=== PATIENT | male | born 1990 ===

== ENCOUNTER 2019-01-30 06:13 | Observation (INO) | payer OTHER ==
[2019-01-30 06:36] VITALS: BMI 27.9
[2019-01-30] MEDS ORDERED: Lactated Ringer's 1,000 ML IV ONE ×4 (07:30→16:00)
--- NOTE | 2019-01-30 07:37 | CP.SDSHP ---
Same Day Surgery H & P - History Proposed Procedure: right distal humeral shaft fracture ORIF Pre-Op Diagnosis: Right distal humerus shaft fracture - Previous Medical/Surgical History Previous Surgical History: no PMH/PSH. non smoker - Allergies Allergies: Allergies No Known Allergies Allergy (Verified 01/29/19 14:35) - Current Medications Current Medications: denies - Physical Exam Vital Signs: Vital Signs 01/30/19 01/30/19 06:58 07:00 Temperature 97.8 F Pulse Rate 55 L 55 L Respiratory 16 Rate Blood Pressure 112/63 O2 Sat by Pulse 97 Oximetry Mental Status: Alert & Oriented x3 Neuro: WNL Heart: WNL Lungs: WNL GI: WNL - {Optional Preform as Required} Ortho: Other (splint intact, +ROM fingers, wrist, sensation intact rad/med/ulnar nerve distrib) Other Pertinent Findings: xrays at outside facility. [place] [employer] patient report reviewed, no CDS. Patient counseled on the risks of addiction, physical or psy chological dependence, and overdose associated with opioid drugs and the danger of taking opioid drugs with alcohol and other central nervous system depressants, and cautioned patient on storage and disposal. - Impression Impression: 28M RHD with twisting injury to right arm while playing found to have right distal humeral shaft fx for ORIF Pt. Evaluated Today:Candidate for Anesthesia & Procedure: Yes - Date & Time Date: 01/30/19 Time: 07:30 Short Stay Discharge - Short Stay Discharge Admitting Diagnosis/Reason for Visit: S42.301A/S42.391A Disposition: HOME/ ROUTINE Medications: oxyCODONE/Acetaminophen [Percocet 5/325 mg Tab] 1 ea PO Q4H PRN #30 tab PRN Reason: Pain, Moderate (4-7) Past Patient History - Past Medical History & Family History Past Medical History?: No - Past Social History Smoking Status: Never Smoked - CARDIAC Hx Cardiac Disorders: No - PULMONARY Hx Respiratory Disorders: No - NEUROLOGICAL Hx Neurological Disorder: No - HEENT Hx HEENT Problems: No - ENDOCRINE/METABOLIC Hx Endocrine Disorders: No - HEMATOLOGICAL/ONCOLOGICAL Hx Blood Disorders: No - INTEGUMENTARY Hx Dermatological Problems: No - MUSCULOSKELETAL/RHEUMATOLOGICAL Hx Musculoskeletal Disorders: No - GASTROINTESTINAL Hx Gastrointestinal Disorders: No - GENITOURINARY/GYNECOLOGICAL Hx Genitourinary Disorders: No - PSYCHIATRIC Hx Emotional Abuse: No Hx Physical Abuse: No - SURGICAL HISTORY Hx Surgeries: No - ANESTHESIA Hx Anesthesia: No
[2019-01-30] MEDS ORDERED: Bacitracin Ointment 30 GM TUBE ONE (09:20)
[2019-01-30] MEDS ORDERED: Absorbable Gelatin Sponge Size 12-7 ONE ×3 (09:20→14:44)
[2019-01-30] MEDS ORDERED: Bupivacaine 0.5% Inj(30mL) ONE (09:20)
[2019-01-30] MEDS ORDERED: methylPREDNISolone Depo 80 mg/ml Inj ONE (09:20)
[2019-01-30] MEDS ORDERED: EPINEPHrine 1 mg/ml (1:1000) Inj ONE (09:20)
[2019-01-30] MEDS ORDERED: Thrombin Topical 5,000 Int Units Spray Kit ONE ×2 (09:21→13:36)
[2019-01-30] MEDS ORDERED: Propofol 10 mg/ml Inj (20 ML) ONE (09:35)
[2019-01-30] MEDS ORDERED: Lidocaine 4% (Laryng-O-Jet) Kit MM ONE (09:35)
[2019-01-30] MEDS ORDERED: Etomidate 20 mg/10ml Inj IV ONE (09:35)
[2019-01-30] MEDS ORDERED: Succinylcholine 200 mg/10 ml Inj IV ONE (09:35)
[2019-01-30] MEDS ORDERED: Dexamethasone 4 mg/1 ml ONE (09:40)
[2019-01-30] MEDS ORDERED: Phenylephrine 10 mg/ml Inj ONE (09:40)
[2019-01-30] MEDS ORDERED: Midazolam 2 MG/2 ML VIAL ONE (10:40)
[2019-01-30] MEDS ORDERED: Rocuronium 10 mg/ml (5 ml) ONE ×4 (10:56→15:08)
[2019-01-30 14:23] LABS: ABG ALLEN TEST YES; ARTERIAL BLOOD GAS HCO3 24.8 mmol/L (21-28); ARTERIAL BLOOD GAS HEMOGLOBIN 12.7 g/dL (11.7-17.4); ARTERIAL BLOOD GAS O2 CONTENT 17.9 ML/dL (15-23); ARTERIAL BLOOD GAS O2 SAT 99.7 % (95-98); ARTERIAL BLOOD GAS PCO2 44 mm/Hg (35-45); ARTERIAL BLOOD GAS PH 7.37 (7.35-7.45); ARTERIAL BLOOD GAS PO2 253 mm/Hg (80-100); ARTERIAL BLOOD GAS TCO2 26.8 mmol/L (22-28)
[2019-01-30] MEDS ORDERED: Oxycodone/Acetaminophen 5/325 mg Tab PO PRN (15:26)
[2019-01-30] MEDS ORDERED: Lactated Ringer's 1,000 ML IV SCH ×2 (15:30→17:00)
[2019-01-30] MEDS ORDERED: Neostigmine 1:1000 (1 mg/ml) Inj ONE (16:03)
[2019-01-30] MEDS ORDERED: HYDROmorphone 0.5 mg/0.5 ml ISec IVP PRN (16:49)
[2019-01-30] MEDS ORDERED: DiphenhydrAMINE 50 mg/ml Inj IVP PRN (16:55)
[2019-01-30] MEDS ORDERED: Naloxone 0.4 mg/ml Inj (Adult) IVP PRN (16:55)
[2019-01-30] MEDS: HYDROmorphone 0.5 mg/0.5 ml ISec IVP PRN ×4 (17:26→18:05)
--- NOTE | 2019-01-30 17:51 | CP.PCM.HP ---
History of Present Illness - History of Present Illness History of Present Illness: 28 yo male with no significant PMH broke his right humerus after a fall 5 days ago. Had ORIF today and was advised to stay for observation post surgery. Present on Admission - Present on Admission Any Indicators Present on Admission: No History of DVT/PE: No History of Uncontrolled Diabetes: No Urinary Catheter: No Decubitus Ulcer Present: No Review of Systems - Review of Systems All systems: reviewed and no additional remarkable complaints except (aside from those mentioned above, 12 point system review were negative by me) Past Patient History - Past Medical History & Family History Past Medical History?: No - Past Social History Smoking Status: Never Smoked Chewing Tobacco Use: No Cigar Use: No Alcohol: None Drugs: Denies - CARDIAC Hx Cardiac Disorders: No - PULMONARY Hx Respiratory Disorders: No - NEUROLOGICAL Hx Neurological Disorder: No - HEENT Hx HEENT Problems: No - ENDOCRINE/METABOLIC Hx Endocrine Disorders: No - HEMATOLOGICAL/ONCOLOGICAL Hx Blood Disorders: No - INTEGUMENTARY Hx Dermatological Problems: No - MUSCULOSKELETAL/RHEUMATOLOGICAL Hx Musculoskeletal Disorders: No - GASTROINTESTINAL Hx Gastrointestinal Disorders: No - GENITOURINARY/GYNECOLOGICAL Hx Genitourinary Disorders: No - PSYCHIATRIC Hx Emotional Abuse: No Hx Physical Abuse: No - SURGICAL HISTORY Hx Surgeries: No - ANESTHESIA Hx Anesthesia: No Meds Home Medications: Home Medication List Medication Instructions Recorded Confirmed Type oxyCODONE/Acetaminophen [Percocet 1 ea PO Q4H PRN #30 tab 01/30/19 Rx 5/325 mg Tab] Allergies/Adverse Reactions: Allergies Allergy/AdvReac Type Severity Reaction Status Date / Time No Known Allergies Allergy Verified 01/29/19 14:35 Physical Exam - Constitutional Appears: No Acute Distress - Head Exam Head Exam: ATRAUMATIC - Eye Exam Eye Exam: absent: Scleral icterus - ENT Exam ENT Exam: Mucous Membranes Moist - Neck Exam Neck exam: Negative for: Meningismus - Respiratory Exam Respiratory Exam: absent: Rales, Rhonchi, Wheezes, Respiratory Distress - Cardiovascular Exam Cardiovascular Exam: REGULAR RHYTHM, +S1, +S2 - GI/Abdominal Exam GI & Abdominal Exam: Soft. absent: Tenderness - Rectal Exam Rectal Exam: Deferred - Extremities Exam Extremities exam: Negative for: normal inspection (right arm immobilized with sling) - Neurological Exam Neurological exam: Alert, Oriented x3 - Psychiatric Exam Psychiatric exam: Normal Affect - Skin Skin Exam: Dry, Intact Results - Vital Signs Recent Vital Signs: Last Vital Signs Temp 99.5 F 01/30/19 17:20 Pulse 97 H 01/30/19 17:35 Resp 18 01/30/19 17:35 BP 167/85 H 01/30/19 17:35 Pulse Ox 98 01/30/19 17:35 - Labs Labs: Laboratory Results - last 24 hr 01/30/19 01/30/19 01/30/19 10:45 12:22 14:20 pCO2 44 pO2 253 H HCO3 24.8 ABG pH 7.37 ABG Total CO2 26.8 ABG O2 Saturation 99.7 H ABG O2 Content 17.9 ABG Base Excess -0.1 ABG Hemoglobin 12.7 ABG Carboxyhemoglobin 1.5 POC ABG HHb (Measured) 0.3 ABG Methemoglobin 1.4 ABG O2 Capacity 18.0 Mario Alberto Test Yes A-a O2 Difference 405.0 Hgb O2 Saturation 96.8 FiO2 100.0 Blood Type A POSITIVE Blood Type Confirm A POSITIVE Antibody Screen Negative BBK History Checked No verified bt Assessment & Plan (1) Right humeral fracture Status: Acute Comment: post ORIF. placed on observation. maintain immobilization of right arm. pain management with Dilaudid 0.5mg IVP q 4hrs prn
[2019-01-30] MEDS ORDERED: HYDROmorphone 0.5 mg/0.5 ml ISec ONE (18:20)
--- NOTE | 2019-01-30 19:33 | PCM.SURG1 ---
Surgeon's Initial Post Op Note - Surgeon's Notes Surgeon: Taylor Plumber Cub: Migel Barnes/ 2nd assist D miguel Gama/ Type of Anesthesia: General Endo Anesthesia Administered By: DR Jose Chou Pre-Operative Diagnosis: displaced/comminuted distal 1/3 humerus fracture- classic Triston/Rupert fx. radila neuropraxia ( sensory) Operative Findings: dispalced/comminuted distal 1/3 hgumerus fx. 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 Primary epineurial repair radial nerve at level of fracture. radial neurolysis. use of [employer] nerve jacket. autogrtaft/allograft bone graft. ap[plx compression dressing and posterior splint with rlbow flexed to protect repair Specimen/Specimens Removed: epieurium/fx callous Estimated Blood Loss: EBL {In ML}: 250 Blood Products Given: N/A Drains Used: No Drains Post-Op Condition: Fair Date of Surgery/Procedure: 01/30/19 Time of Surgery/Procedure: 12:05 (time in room 10:35)
[2019-01-30] MEDS: ceFAZolin 2 GM in Sodium Chloride 0.9% 100 ML IVPB SCH (22:56)
[2019-01-31 05:02] VITALS: TEMP 97.9
[2019-01-31] MEDS: ceFAZolin 2 GM in Sodium Chloride 0.9% 100 ML IVPB SCH (06:02)
[2019-01-31] MEDS: Oxycodone/Acetaminophen 5/325 mg Tab PO PRN ×2 (06:10→09:57)
[2019-01-31 07:13] LABS: HEMOGLOBIN 11.5 g/dL (12.0-18.0); MEAN CELL VOLUME 81.3 fl (80.0-94.0); MEAN CORPUSCULAR HEMOGLOBIN 28.7 pg (27.0-31.0); MEAN CORPUSCULAR HGB CONC 35.3 g/dL (33.0-37.0); RBC 4.01 Mil/uL (4.40-5.90); RED CELL DISTRIBUTION WIDTH 13.6 % (11.5-14.5)
[2019-01-31 07:22] LABS: BLOOD UREA NITROGEN 15 mg/dl (9-20); CALCIUM 8.6 mg/dL (8.4-10.2); GFR NON-AFRICAN AMERICAN > 60
--- NOTE | 2019-01-31 07:53 | CP.PCM.PN ---
Subjective - Date & Time of Evaluation Date of Evaluation: 01/31/19 Time of Evaluation: 07:00 - Subjective Subjective: Patient seen and examined with Dr. Vazquez at bedside comfortable. Pain is well controlled. Hospitalist noted swelling at occiput of head, no change in mental status. CT was performed and resulted negative for any acute changes. No other complaints. Denies CP/SOB/fever/MORELOS. Objective - Vital Signs/Intake and Output Vital Signs (last 24 hours): Temp Pulse Resp BP Pulse Ox 97.9 F 85 18 127/58 L 99 01/31/19 05:00 01/31/19 05:00 01/31/19 05:00 01/31/19 05:00 01/31/19 05:00 - Medications Medications: Current Medications Acetaminophen (Tylenol 325mg Tab) 650 mg PO Q4 PRN PRN Reason: Fever 101 degrees fahrenheit Diphenhydramine HCl (Benadryl) 25 mg IVP Q6 PRN PRN Reason: Itching / Pruritus Hydromorphone HCl (Dilaudid) 0.5 mg IVP Q4 PRN PRN Reason: Pain, severe (8-10) Hydromorphone HCl (Dilaudid 0.2 Mg/Ml [employer]) 0 mg IV PRN PRN; Protocol PRN Reason: Pain, moderate (4-7) Last Admin: 01/30/19 18:50 Dose: 0 mg Acetaminophen (Ofirmev) 100 mls @ 400 mls/hr IVPB Q6H [facility]; Protocol Stop: 01/31/19 10:01 Last Admin: 01/31/19 03:21 Dose: 400 mls/hr Cefazolin Sodium 2 gm/ Sodium (Chloride) 100 mls @ 100 mls/hr IVPB Q8H [facility]; Protocol Stop: 01/31/19 07:59 Last Admin: 01/31/19 06:02 Dose: 100 mls/hr Lactated Ringer's (Lactated Ringer's) 1,000 mls @ 75 mls/hr IV .[id number] KIEL Last Admin: 01/31/19 06:57 Dose: Not Given Naloxone HCl (Narcan) 0.1 mg IVP Q2M PRN PRN Reason: Shortness of Breath Ondansetron HCl (Zofran Inj) 4 mg IVP ONCE PRN PRN Reason: Nausea/Vomiting Oxycodone/Acetaminophen (Percocet 5/325 Mg Tab) 1 tab PO Q4 PRN PRN Reason: Pain, moderate (4-7) Stop: 02/02/19 15:27 Last Admin: 01/31/19 06:10 Dose: 1 tab - Labs Labs: 01/31/19 05:25 01/31/19 05:25 - Extremities Exam Additional comments: RUE: Long arm splint intact sensation intact MN/UN/RN motor intact MN/UN, RN intact today as examined by Dr. Vazquez radial pulse intact Assessment and Plan (1) Right humeral fracture Assessment & Plan: POD#1 s/p R humerus ORIF -Maintain R shoulder splint and sling -NWB RUE -PT/OT -pain controlled -orthopedically stable for discharge to home today -f/u in office next Monday -above d/w Dr. Vazquez who agrees Status: Acute
[2019-01-31 08:11] VITALS: BP 113/61; PULSE 67; RESP 19; O2SAT 98
--- NOTE | 2019-01-31 08:33 | CT ---
Date of service: 01/30/2019 PROCEDURE: CT HEAD WITHOUT CONTRAST. HISTORY: big swelling on occipital area COMPARISON: None available. TECHNIQUE: Axial computed tomography images were obtained through the head/brain without intravenous contrast. Radiation dose: Total exam DLP = 778.71 mGy-cm. This CT exam was performed using one or more of the following dose reduction techniques: Automated exposure control, adjustment of the mA and/or kV according to patient size, and/or use of iterative reconstruction technique. FINDINGS: HEMORRHAGE: No intracranial hemorrhage. BRAIN: No mass effect or edema. No atrophy or chronic microvascular ischemic changes. VENTRICLES: Unremarkable. No hydrocephalus. CALVARIUM: Unremarkable. PARANASAL SINUSES: Unremarkable as visualized. No significant inflammatory changes. MASTOID AIR CELLS: Unremarkable as visualized. No inflammatory changes. OTHER FINDINGS: None. IMPRESSION: Normal CT of the Head. Concordant results (preliminary interpretation) provided by [facility].
--- NOTE | 2019-01-31 11:39 | CP.PCM.DIS ---
Provider - Provider Date of Admission: 01/30/19 16:49 Attending physician: Rufino Crump MD Time Spent in preparation of Discharge (in minutes): 38 Diagnosis - Discharge Diagnosis (1) Right humeral fracture Status: Acute Comment: POD#1 s/p ORIF. Hospital Course - Lab Results Lab Results: Most Recent Lab Values WBC 12.0 K/uL (4.8-10.8) H 01/31/19 05:25 RBC 4.01 Mil/uL (4.40-5.90) L 01/31/19 05:25 Hgb 11.5 g/dL (12.0-18.0) L 01/31/19 05:25 Hct 32.6 % (35.0-51.0) L 01/31/19 05:25 MCV 81.3 fl (80.0-94.0) 01/31/19 05:25 MCH 28.7 pg (27.0-31.0) 01/31/19 05:25 MCHC 35.3 g/dL (33.0-37.0) 01/31/19 05:25 RDW 13.6 % (11.5-14.5) 01/31/19 05:25 Plt Count 209 K/uL (130-400) 01/31/19 05:25 pCO2 44 mm/Hg (35-45) 01/30/19 14:20 pO2 253 mm/Hg (80-100) H 01/30/19 14:20 HCO3 24.8 mmol/L (21-28) 01/30/19 14:20 ABG pH 7.37 (7.35-7.45) 01/30/19 14:20 ABG Total CO2 26.8 mmol/L (22-28) 01/30/19 14:20 ABG O2 Saturation 99.7 % (95-98) H 01/30/19 14:20 ABG O2 Content 17.9 ML/dL (15-23) 01/30/19 14:20 ABG Base Excess -0.1 mmol/L (-2.0-3.0) 01/30/19 14:20 ABG Hemoglobin 12.7 g/dL (11.7-17.4) 01/30/19 14:20 ABG Carboxyhemoglobin 1.5 % (0.5-1.5) 01/30/19 14:20 POC ABG HHb (Measured) 0.3 % (0.0-5.0) 01/30/19 14:20 ABG Methemoglobin 1.4 % (0.0-3.0) 01/30/19 14:20 ABG O2 Capacity 18.0 mL/dL (16-24) 01/30/19 14:20 Mario Alberto Test Yes 01/30/19 14:20 A-a O2 Difference 405.0 mm/Hg 01/30/19 14:20 Hgb O2 Saturation 96.8 % (95.0-98.0) 01/30/19 14:20 FiO2 100.0 % 01/30/19 14:20 Sodium 138 mmol/l (132-148) 01/31/19 05:25 Potassium 3.7 MMOL/L (3.6-5.0) 01/31/19 05:25 Chloride 102 mmol/L (98-107) 01/31/19 05:25 Carbon Dioxide 27 mmol/L (22-30) 01/31/19 05:25 Anion Gap 13 (10-20) 01/31/19 05:25 BUN 15 mg/dl (9-20) 01/31/19 05:25 Creatinine 0.9 mg/dl (0.8-1.5) 01/31/19 05:25 Est GFR ( Amer) > 60 01/31/19 05:25 Est GFR (Non-Af Amer) > 60 01/31/19 05:25 Random Glucose 113 mg/dL (75-110) H 01/31/19 05:25 Calcium 8.6 mg/dL (8.4-10.2) 01/31/19 05:25 Blood Type A POSITIVE 01/30/19 10:45 Blood Type Confirm A POSITIVE 01/30/19 12:22 Antibody Screen Negative 01/30/19 10:45 BBK History Checked No verified bt 01/30/19 10:45 - Hospital Course Hospital Course: POD#1 s/p ORIF of right humerus 28 year old male admitted for observation s/p ORIF of right humeral fracture. Patient has some pain of right arm, no numbness/tingling. Arm in cast with sling. Encouraged to elevate and use ice for swelling. Continue pain control with percocet for severe pain. Follow up with Ortho in1 week. Discharge Exam - Head Exam Head Exam: ATRAUMATIC, NORMAL INSPECTION - Respiratory Exam Respiratory Exam: Clear to PA & Lateral, NORMAL BREATHING PATTERN. absent: Decreased Breath Sounds, Rales, Rhonchi, Wheezes, Respiratory Distress - Cardiovascular Exam Cardiovascular Exam: REGULAR RHYTHM - Extremities Exam Additional comments: RUE in cast wrapped in STEPHANIE with sling,able to move fingers, no neurovascular deficit. - Neurological Exam Neurological exam: Alert, CN II-XII Intact - Psychiatric Exam Psychiatric exam: Normal Affect, Normal Mood Discharge Plan - Discharge Medications Prescriptions: oxyCODONE/Acetaminophen [Percocet 5/325 mg Tab] 1 ea PO Q4H PRN #30 tab PRN Reason: Pain, Moderate (4-7) - Follow Up Plan Condition: GOOD Disposition: HOME/ ROUTINE Instructions: Open Reduction and Internal Fixation Surgery (DC), Upper Arm Fracture, How to Use a Shoulder Sling Additional Instructions: hacer ramón con Dr Taylor santoyo 1 semana Referrals: Wesley Vazquez III, MD [Staff Provider] - Clinical Quality Measures - Date & Time of Discharge Summary Date of Discharge Summary: 01/31/19 Time of Discharge Summary: 12:16
--- NOTE | 2019-02-01 09:43 | OP ---
PROCEDURE DATE: 01/30/2019 TIME OF SURGERY: Time in the room 10:35, incision time 12:05. PREOPERATIVE DIAGNOSES: 1. Displaced comminuted distal one-third humeral fracture (classic Marta-Rupert fracture). 2. Preoperative radial neurapraxia (sensory). POSTOPERATIVE DIAGNOSES: 1. Displaced comminuted distal one-third humeral fracture (classic Marta-Rupert fracture). 2. Preoperative radial neurapraxia (sensory). OPERATIVE FINDINGS: 1. Displaced comminuted distal one-third humerus fracture. 2. Entrapment of the radial nerve with radial nerve laceration from bony entrapment. OPERATIVE PROCEDURES: 1. Open reduction and internal fixation of displaced comminuted distal third humerus fracture. 2. Primary epineurial repair of the radial nerve at the level of the fracture with the aid of the operating microscope. 3. Radial neurolysis with the aid of the microscope. 4. Autograft and allograft bone grafting. 5. Use of the PAYMILL nerve jacket supplementation with the aid of the operating microscope, application of compression dressing, posterior splint and positioning of fluoroscope, interpretation of video images. The remainder of the operative note should remain intact. SPECIMENS REMOVED: Epineurium fracture callus. ESTIMATED BLOOD LOSS: 250 mL. BLOOD PRODUCTS GIVEN: None. DRAINS: None. POSTOPERATIVE CONDITION: Stable. SURGEON: Wesley Vazquez MD TURNSTILE COLLECTOR: Migel Chen PA-C SECOND FINISH OFF OPERATOR: Lexii Gama, Certified Registered Nursing Lathe Set Up Operator. ANESTHESIA: General endotracheal. 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 The patient presented to my office and the patient was evaluated. The patient exhibited radial sensory deficit. The fracture pattern was a classic Godwin-Rupert comminuted distal one-third humerus fracture. Through the culturally competent reverberatory furnace operator both in the office and in the preoperative holding area, pros, cons, risks and benefits of surgical approach were discussed. The possibility of mechanical failure, infection, thromboembolic disease, nerve injury, secondary or tertiary surgery was discussed. The concept of alternative treatments were discussed. The concept that the [id number] with respect to the treatment of this fracture at this point in time in 2019 across the countries is open reduction internal fixation was discussed. 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 The situation was discussed at length with the patient and his . DESCRIPTION OF PROCEDURE: After having obtained informed consent in the above fashion, after having identified side, site and procedure and a critical pause/time-out, after the satisfactory induction of the anesthetic, the patient identified as Herminio Wheat in the modified moore chair position, the right upper extremity was placed in the upper extremity positioner. All bony prominences were well padded. The neck was well padded, the skull was well padded and great care was taken to protect the legs and the peroneal nerves in positioning. Under the surgeon's direction, the fluoroscope was positioned, the video images were generated and therapeutic decisions were made therefrom. The fracture was reduced with mild traction. The fracture was roughly found to be appropriately out to length, so as to offer aid in the reduction. This having been accomplished, after having obtained informed consent, after the satisfactory induction of general endotracheal anesthesia by Dr. Andrea Douglas, after having assured all bony prominences well padded, the right upper extremity was prepped and free draped in usual fashion for upper extremity surgery. The traditional approach to the midshaft humerus and the distal aspect of the humerus was accomplished. The incision was described at the mid aspect of the humerus bisecting the biceps and the triceps in terms of the topographic anatomy. The topographic anatomy was marked, the incision was carried down distally to the point of lateral epicondyle and extended three fingerbreadths distal to that, superficial to the extensor mobile wad of Gil. The incision was insufflated with a solution of 1:1000 epinephrine 2 mL and 250 mL of saline. Tourniquet was not employed. The skin incision was addressed, the wheal is raised of the epinephrine solution and this was carried down from the proximal and distal aspect of the incision. The skin incision was carried down through the skin and subcutaneous tissue. The operation was performed under 2.0 magnification eyeglass. This having been accomplished, the skin incision was carried down through the skin and subcutaneous tissue. The fracture site was identified. Great care was taken to identify the radial nerve since the surgeon was well aware that the radial nerve is coming around posteriorly to the anterior aspect of the humerus at this point, at the level of the distal third humerus fracture, so-called classic Marta-Rupert fracture. A Gelpi retractors were placed at this point in time, using Metzenbaum scissors under direct vision and dissection commences, an aperture is noted in the musculature at the junction between the triceps and biceps. This was packed carefully with a lap sponge. Dissection was carried out slowly using a combination of Metzenbaum scissors and the cold knife to the plane on the lateral aspect of the humerus. The radial nerve at this point is identified, again directly at the site of the fracture, it was found to be entrapped in the fracture and there was found to be laceration of the radial nerve. This having been accomplished, a careful radial neurolysis was accomplished under direct vision using a dissecting scissors. Epineurium was carefully developed. The proximal aspect of the nerve was identified. Using the dissecting scissors, mobilization of the nerve both proximally and distally was accomplished as the radial nerve caries distally to the distal aspect in the area of the mobile wad of Gil musculature laterally when it divides into the superficial sensory branch and the deep posterior osseous branch. The radial nerve there distally was mobilized at this point in time and is placed in a moist Ray-Shavonne sponge, proximally it is identified as well. The vessels in the proximal aspect of the humerus that are controlled using a suture ligature so as to protect the nerve from electrocautery. This having been accomplished, the dissection was carried out to the level of the deltoid. The dissection is carried out to the deltoid level being mindful of the axillary nerve and protecting the axillary nerve. At this point in time, the fracture was debrided of healing callus. Using a combination of the curette and a hand rongeur, the fracture was debrided of healing callus and this is sent for specimen. There was found to be a butterfly-type fragment accounting for the comminution of the fracture. The fracture was reduced and held with bone holding clamp at this point in time again taking great care to protect the radial nerve. The 1.7 mm cables were placed. There is cerclage around the fracture. The fracture was reduced in that fashion and the fracture is fixated by the cable. The fixation jet twister device was accomplished and the cable was used reduced the fracture. It was crimped. The excess cable was removed using a wireless store manager and a second cable was used to offer fixation. This temporary fixation having been accomplished and taking great care to include the butterfly fragment in the reduction, reduction was found to be acceptable. Under the surgeon's direction, the fluoroscope was positioned, the video images were generated, therapeutic decisions were made therefrom. Therapeutic decision at this point in time is to go ahead and stabilize the fracture with internal fixation. A 3.5 mm plate laterally to posteriorly is applied and again taking great care to avoid injury to the radial nerve segments proximally and distally. Each sequential drill hole is drilled, sounded and the appropriate size screws were placed in the locking mode. Fixation was found to be excellent. At this point in time, verification of position is offered on image intensification. The reduction was found to be acceptable. There was found to be one long screw, which is in the olecranon fossa, which was removed to a more appropriate screw. This having been accomplished, autograft and allograft bone graft were accomplished to the fracture site using the DBX and fragments of the original fracture. Autograft and allograft bone grafting having been accomplished, the position of the fracture is found to be acceptable. At this point in time with the radial nerve mobilized carefully, the ends of the radial nerve were excised with a 15 blade. This having been accomplished, the epineural repair commences both under direct vision with use of the operating microscope. The operating microscope was brought into the field and the epineurial repair was accomplished with 6-0 Prolene suture and 6-0 nylon suture. The repair having been accomplished, this was accomplished circumferentially and great care was taken to align the fascicles for an internal alignment again using the operating microscope. At this point in time, the PAYMILL [facility], the nerve jacket is prepared and is placed around the repair and is held with several interrupted nylon sutures taking great care not to compress the nerve extraordinarily. The nerve jacket at this point in time is moistened and it is found to be accepted by the repair in an essentially acceptable fashion. Please refer to the intraoperative photographs and the photographs through the operating microscope. The operating microscope was again employed. Several sutures were removed from the nerve jacket to avoid impingement. Repair having found to be excellent, a sheet of Gelfoam was placed below the repair to protect the repair from the plate. Flexion of the elbow was accomplished but not hyperflexion to eliminate tension from the repair. The wound was thoroughly irrigated. Further bone grafting of the fracture was accomplished with allograft and autograft bone graft. Closures in layers with #2 Quill, 0 Vicryl, 2-0 Vicryl, amanda for skin. Hemostasis had been controlled with the Aquamantys. No necessity for drainage. Compression dressing, posterior splint is applied. It should be noted that postoperatively, the patient was found to have extension of the fingers as early as the first morning postoperatively. Intraoperative fluoroscopy exhibited acceptable position of the construct. It should be noted that after reduction of the fracture and after having identified the injury to the radial nerve under magnification (operating microscope having been used during this procedure), a careful radial neurolysis was accomplished. Radial neurolysis having been accomplished, the ends of the radial nerves were protected using a moist Ray-Shavonne suture. The ends of the nerve were wrapped in the Ray-Shavonne suture. At this point in time, the ends of the nerve were protected and at this point in time, the reduction of the fracture as indicated at the end of page 3, fracture was debrided of healing callus and using a combination of the curette and hand rongeur, the fracture was debrided and there was found to be a butterfly_type fracture and comminution of the fracture. This having been accomplished, the fracture having been reduced and held with a bone_holding clamp and again great care was taken to protect the radial nerve, the fracture was cerclaged. There was cerclage placed around the fracture. At this point in time, the operative report continues on page 4. Wesley Vazquez MD MARIUM
--- NOTE | 2019-02-04 13:28 | RAD ---
Date of service: 01/30/2019 PROCEDURE: Fluoroscopy up to 1 hr. HISTORY: Open reduction internal fixation COMPARISON: None TECHNIQUE: Standard protocol for this study/examination. FINDINGS: Total fluoroscopic time (continuous mode) utilized during the procedure 10.9 seconds. Total exam DLP: 0.20 (mGy). Submitted images from the current procedure: 5.0 IMPRESSION: Less than 1 hr fluoroscopic assistance provided during performance of the procedure.
== END 2019-01-31 12:19 | disposition home or self-care (01) ==
LOC: H.OPSURG 06:13 → H.MEDSURG1 16:49
DX: S42.491A Other displaced fracture of lower end of right humerus, initial encounter for closed fracture (principal); S54.21XA Injury of radial nerve at forearm level, right arm, initial encounter; W18.39XA Other fall on same level, initial encounter; Y92.9 Unspecified place or not applicable
CPT/HCPCS: 24586; 36415; 64708; 64727; 70450; 80048; 82803; 85027; 86850; 86900; 96365; 96367; 96375; 97161; C1713; G0378; G8978; G8979; G8980; J0131; J0171; J0330; J0690; J1100; J1170; J2001; J2250; J2370; J2405; J2704; J2710; J2765; J3010; J7030; J7120

== ENCOUNTER 2019-01-31 19:58 | Observation (INO) | payer OTHER ==
[2019-01-31] MEDS ORDERED: Sodium Chloride 0.9% 1,000 ML IV STA (20:51)
[2019-01-31 21:14] LABS: BASO % 0.3 % (0.0-2.0); EOS % 0.1 % (0.0-4.0); HEMOGLOBIN 12.1 g/dL (12.0-18.0); LYMPH # 1.5 K/uL (1.0-4.3); LYMPH % 14.8 % (20.0-40.0); MEAN CELL VOLUME 81.8 fl (80.0-94.0); MEAN CORPUSCULAR HEMOGLOBIN 28.3 pg (27.0-31.0); MEAN CORPUSCULAR HGB CONC 34.6 g/dL (33.0-37.0); MEAN PLATELET VOLUME 8.8 fl (7.2-11.7); MONO # 0.9 K/uL (0.0-0.8); MONO % 8.8 % (0.0-10.0); NEUT # 7.6 K/uL (1.8-7.0); RBC 4.27 Mil/uL (4.40-5.90); RED CELL DISTRIBUTION WIDTH 13.6 % (11.5-14.5); WHITE BLOOD COUNT 10.1 K/uL (4.8-10.8)
[2019-01-31 21:24] LABS: ALB/GLOB RATIO 1.7 (1.0-2.1); ALBUMIN 4.4 g/dL (3.5-5.0); ALT/SGPT 43 U/L (21-72); AST/SGOT 59 U/L (17-59); BLOOD UREA NITROGEN 12 mg/dl (9-20); CALCIUM 8.9 mg/dL (8.4-10.2); GFR NON-AFRICAN AMERICAN > 60
[2019-01-31] MEDS ORDERED: Morphine 4 MG/ML VIAL ONE ×2 (21:55→23:17)
--- NOTE | 2019-01-31 22:07 | ED PDOC ---
Upper Extremity Pain/Injury Time Seen by Provider: 01/31/19 20:42 Chief Complaint (Nursing): Finger,Hand,&Wrist Chief Complaint (Provider): Right Arm Pain History Per: Patient History/Exam Limitations: no limitations Onset/Duration Of Symptoms: Hrs Additional Complaint(s): 28 year old male presents to ED with right arm pain. Patient states he had a humerus fracture with nerve injury requiring reconstructive surgery with Dr. Vazquez performing surgery here yesterday, Since this morning, patient reports persistent pain. He complains that he feels swelling at the site of surgery which radiates into his hand. Additionally, patient states he felt a fever but there was no documentation. He took a Percocet prescribed to him 30 minutes [employer] PRES[employer] with no relief. PMD: none provided Past Medical History Reviewed: Historical Data, Nursing Documentation, Vital Signs Vital Signs: Last Vital Signs Temp 98.5 F 01/31/19 20:14 Pulse 83 01/31/19 20:14 Resp 16 01/31/19 20:14 BP 138/78 01/31/19 20:14 Pulse Ox 97 01/31/19 20:14 Primary Care Provider: FAMILY PROVIDER,NO - Medical History PMH: No Chronic Diseases - Family History Family History: States: No Known Family Hx - Social History Current smoker - smoking cessation education provided: No Alcohol: None Drugs: Denies - Home Medications Home Medications: Ambulatory Orders Medication Instructions Recorded DULoxetine [Cymbalta] 30 mg PO DAILY #30 ecc 02/01/19 Gabapentin [Neurontin] 300 mg PO TID #90 cap 02/01/19 Morphine [Morphine Immediate 15 mg PO Q4 PRN #30 tab 02/01/19 Release Tab] Naproxen 500 mg PO Q12 #60 tab 02/01/19 - Allergies Allergies/Adverse Reactions: Allergies Allergy/AdvReac Type Severity Reaction Status Date / Time No Known Allergies Allergy Verified 01/29/19 14:35 Review of Systems ROS Statement: Except As Marked, All Systems Reviewed And Found Negative Constitutional: Positive for: Fever (subjective with no documentation) Musculoskeletal: Positive for: Arm Pain (right), Other (swelling at site of injury radiating into hand) Physical Exam - Reviewed Nursing Documentation Reviewed: Yes Vital Signs Reviewed: Yes - Physical Exam Appears: Positive for: No Acute Distress Head Exam: Positive for: ATRAUMATIC, NORMAL INSPECTION, NORMOCEPHALIC Skin: Positive for: Normal Color, Warm, Dry Eye Exam: Positive for: EOMI, Normal appearance, PERRL ENT: Positive for: Normal ENT Inspection Neck: Positive for: Normal, Painless ROM Cardiovascular/Chest: Positive for: Regular Rate, Rhythm. Negative for: Murmur Respiratory: Positive for: Normal Breath Sounds. Negative for: Respiratory Distress Pulses-Radial (L): 2+ Pulses-Radial (R): 2+ Gastrointestinal/Abdominal: Positive for: Normal Exam, Soft. Negative for: Tenderness Back: Positive for: Normal Inspection. Negative for: L CVA Tenderness, R CVA Tenderness, Vertebral Tenderness Extremity: Positive for: Normal ROM (moves digits freely), Capillary Refill <2 Sec, Swelling (trace to right hand), Other (long arm splint intact) Neurological/Psych: Positive for: Awake, Alert, Normal Tone - Laboratory Results Result Diagrams: 01/31/19 21:00 01/31/19 21:00 Lab Results: Total Bilirubin 0.7 mg/dl (0.2-1.3) 01/31/19 21:00 AST 59 U/L (17-59) 01/31/19 21:00 ALT 43 U/L (21-72) 01/31/19 21:00 Alkaline Phosphatase 63 U/L (38-126) 01/31/19 21:00 Total Protein 7.0 G/DL (6.3-8.2) 01/31/19 21:00 Albumin 4.4 g/dL (3.5-5.0) 01/31/19 21:00 Globulin 2.6 gm/dL (2.2-3.9) 01/31/19 21:00 Albumin/Globulin Ratio 1.7 (1.0-2.1) 01/31/19 21:00 - ECG O2 Sat by Pulse Oximetry: 97 (RA) Pulse Ox Interpretation: Normal Medical Decision Making Medical Decision Making: Time: 2141 Initial Impression: 28 year old male with post-op pain Initial Plan: --Morphine --IV Fluids --Blood culture --Call placed to Dr. Vazquez 22:30 Patient's dressing reomved from [facility] for visual inspection. Underlying dressing visualized as well as amanda and sutures which are clean dry and intact with no active drainage or bleeding. No erythema or induration. Mild edema noted which appears consistent with post-operative swelling 22:45 Labs reviewed no clinically significant abnormalities. Case discussed with Dr. Vazquez. Due to patient requiring repeated parenteral analgesia, will place on observation for further pain management. Case referred to hospitalist service at Dr. Vazquez's request. As per Dr. Vazquez's recommendation, ice packs applied to extremities and then subsequently removed for replacement of patient's dressing. Patrient reports modest imrovement; dressing reapplied. Case d/w Dr Rubin Scribe Attestation: Documented by Leonidas Horner and Parth Howard acting as a scribe for Reynaldo Le MD. Provider Scribe Attestation: All medical record entries made by the Scribe were at my direction and personally dictated by me. I have reviewed the chart and agree that the record accurately reflects my personal performance of the history, physical exam, medical decision making, and the department course for this patient. I have also personally directed, reviewed, and agree with the discharge instructions and disposition. Disposition - Clinical Impression Clinical Impression: Right humeral fracture, Pain, postoperative, acute - Disposition Disposition Time: 22:00 Condition: GOOD
[2019-02-01] MEDS ORDERED: Oxycodone/Acetaminophen 5/325 mg Tab PO PRN (00:22)
--- NOTE | 2019-02-01 00:28 | CP.PCM.HP ---
<Helen Stanley - Last Filed: 02/01/19 00:47> History of Present Illness - History of Present Illness History of Present Illness: CC: R shoulder pain HPI: 28 YO male with no sig PMHx presents to [facility] ED for RUE pain. Patient was admitted to the hospital on 01/30 and underwent a ORIF displaced/comminuted distal 1/3 humerus fracture and primary epineurial repair radial nerve at level of fracture. Yesterday, patient was cleared by surgery for discharge home with PO percocet. Patient states that even after the PO pain med, his pain persisted and brought him to the ED tonight. Denies numbness or tingling, sensation intact. Denies chest pain, dyspnea, palpitations, headache, n/v, abd pain, feve rs and chills. PMHx: denies SurgHx: ORIF 01/30/19 SHx: denies ETOH, smoking and illicit drug use FHx: denies, healthy Allergies: NKDA Meds: Percocet Present on Admission - Present on Admission Any Indicators Present on Admission: No Review of Systems - Constitutional Constitutional: absent: Chills, Fever - Cardiovascular Cardiovascular: absent: Chest Pain, Dyspnea - Respiratory Respiratory: absent: Cough, Dyspnea - Gastrointestinal Gastrointestinal: absent: Abdominal Pain - Genitourinary Genitourinary: absent: Dysuria - Neurological Neurological: absent: Headaches Past Patient History - Past Medical History & Family History Past Medical History?: No - Past Social History Smoking Status: Never Smoked Alcohol: None Drugs: Denies Home Situation {Lives}: With Family - CARDIAC Hx Cardiac Disorders: No - PULMONARY Hx Respiratory Disorders: No - NEUROLOGICAL Hx Neurological Disorder: No - HEENT Hx HEENT Problems: No - ENDOCRINE/METABOLIC Hx Endocrine Disorders: No - HEMATOLOGICAL/ONCOLOGICAL Hx Blood Disorders: No - INTEGUMENTARY Hx Dermatological Problems: No - MUSCULOSKELETAL/RHEUMATOLOGICAL Hx Musculoskeletal Disorders: No - GASTROINTESTINAL Hx Gastrointestinal Disorders: No - GENITOURINARY/GYNECOLOGICAL Hx Genitourinary Disorders: No - PSYCHIATRIC Hx Emotional Abuse: No Hx Physical Abuse: No Hx Substance Use: No - SURGICAL HISTORY Hx Surgeries: No - ANESTHESIA Hx Anesthesia: No Meds Allergies/Adverse Reactions: Allergies Allergy/AdvReac Type Severity Reaction Status Date / Time No Known Allergies Allergy Verified 01/29/19 14:35 Physical Exam - Constitutional Appears: No Acute Distress, Other (RUE in dressing and sling ) - Eye Exam Eye Exam: EOMI - ENT Exam ENT Exam: Mucous Membranes Moist - Respiratory Exam Respiratory Exam: Clear to Auscultation Bilateral, NORMAL BREATHING PATTERN. absent: Wheezes - Cardiovascular Exam Cardiovascular Exam: REGULAR RHYTHM, +S1, +S2 - GI/Abdominal Exam GI & Abdominal Exam: Normal Bowel Sounds, Soft. absent: Distended, Guarding, Tenderness - Extremities Exam Extremities exam: Positive for: normal inspection. Negative for: calf tenderness, pedal edema Additional comments: RUE in dressing with a sling Sensory intact in fingers, cap refill <2 sec As per ER attending; mild post-op swelling, amanda intact; skin clean, dry and intact - Neurological Exam Neurological exam: Alert, Oriented x3 - Psychiatric Exam Psychiatric exam: Normal Mood - Skin Skin Exam: Dry, Intact, Normal Color, Warm Results - Vital Signs Recent Vital Signs: Last Vital Signs Temp 98.9 F 01/31/19 23:51 Pulse 84 01/31/19 23:51 Resp 17 01/31/19 23:51 BP 138/78 01/31/19 23:51 Pulse Ox 97 01/31/19 23:36 - Labs Result Diagrams: 01/31/19 21:00 01/31/19 21:00 Labs: Laboratory Results - last 24 hr 01/31/19 01/31/19 01/31/19 21:00 21:00 21:00 WBC 10.1 RBC 4.27 L Hgb 12.1 Hct 35.0 MCV 81.8 MCH 28.3 MCHC 34.6 RDW 13.6 Plt Count 212 MPV 8.8 Neut % (Auto) 76.0 H Lymph % (Auto) 14.8 L [place] % (Auto) 8.8 Eos % (Auto) 0.1 Baso % (Auto) 0.3 Neut # (Auto) 7.6 H Lymph # (Auto) 1.5 [place] # (Auto) 0.9 H Eos # (Auto) 0.0 Baso # (Auto) 0.0 Sodium 139 Potassium 3.8 Chloride 101 Carbon Dioxide 27 Anion Gap 15 BUN 12 Creatinine 0.8 Est GFR ( Amer) > 60 Est GFR (Non-Af Amer) > 60 Random Glucose 113 H Lactic Acid 1.3 Calcium 8.9 Total Bilirubin 0.7 AST 59 ALT 43 Alkaline Phosphatase 63 Total Protein 7.0 Albumin 4.4 Globulin 2.6 Albumin/Globulin Ratio 1.7 Assessment & Plan - Assessment and Plan (Free Text) Assessment: Assessment/Plan: 28 YO male with no sig PMHx is admitted for post-op pain. RUE pain -likely post-op pain -ORIF displaced/comminuted distal 1/3 humerus fracture, POD 2 -pain management -ortho consulted; follow up recs -consider pain management if pain does not improve on current regimen -consider imaging in pain worsens -PT when cleared by ortho DVt prolx -Lovenox SC <Deandre Rubin - Last Filed: 02/01/19 02:01> Results - Vital Signs Recent Vital Signs: Last Vital Signs Temp 97.5 F L 02/01/19 00:58 Pulse 83 02/01/19 00:58 Resp 18 02/01/19 00:58 BP 146/74 02/01/19 00:58 Pulse Ox 96 02/01/19 00:58 - Labs Result Diagrams: 01/31/19 21:00 01/31/19 21:00 Labs: Laboratory Results - last 24 hr 01/31/19 01/31/19 01/31/19 21:00 21:00 21:00 WBC 10.1 RBC 4.27 L Hgb 12.1 Hct 35.0 MCV 81.8 MCH 28.3 MCHC 34.6 RDW 13.6 Plt Count 212 MPV 8.8 Neut % (Auto) 76.0 H Lymph % (Auto) 14.8 L [place] % (Auto) 8.8 Eos % (Auto) 0.1 Baso % (Auto) 0.3 Neut # (Auto) 7.6 H Lymph # (Auto) 1.5 [place] # (Auto) 0.9 H Eos # (Auto) 0.0 Baso # (Auto) 0.0 Sodium 139 Potassium 3.8 Chloride 101 Carbon Dioxide 27 Anion Gap 15 BUN 12 Creatinine 0.8 Est GFR ( Amer) > 60 Est GFR (Non-Af Amer) > 60 Random Glucose 113 H Lactic Acid 1.3 Calcium 8.9 Total Bilirubin 0.7 AST 59 ALT 43 Alkaline Phosphatase 63 Total Protein 7.0 Albumin 4.4 Globulin 2.6 Albumin/Globulin Ratio 1.7 Assessment & Plan - Assessment and Plan (Free Text) Plan: History as documented by resident was reviewed with patient and resident. I performed the ghosh elements of exam and agree with the above findings. Diagnostics were reviewed and medical decision making and plan of care performed by me. 28 yo male with no significant PMH discharged few hours prior to this admission from this center after undergoing ORIF for distal humerus fracture p/w severe pain in the area requiring multiple doses of IV Morphine in the ED and was admitted primarily for pain management. Blood work unremarkable. On exam S1/S2, RRR, lungs clear b/l. RUE mildly swollen as expected post-op. Surgical incision clean without evidence of dehiscence or infection. Small amount of blood was noted at the distal end of the incision. No evidence of compartment syndrome on exam. Able to move fingers and has good capillary refill and sensation intact in the arm and hand. Agree with IV Morphine for pain management. Limb elevation. Serial exam. Awaiting ortho input.
[2019-02-01 05:13] VITALS: BMI 29.2
[2019-02-01 07:36] VITALS: BP 118/64; PULSE 79; RESP 20; TEMP 98.7
--- NOTE | 2019-02-01 08:31 | CP.PCM.PN ---
Subjective - Date & Time of Evaluation Date of Evaluation: 02/01/19 Time of Evaluation: 08:28 - Subjective Subjective: Patient states he has severe pain in is right arm. He says it is a little better now, but he still has a lot of pain. He says he took the percocet yesterday and it did not control pain at all. Denies numbness/tingling. Seun was loosened and he says that helped. Objective - Vital Signs/Intake and Output Vital Signs (last 24 hours): Temp Pulse Resp BP Pulse Ox 98.7 F 79 20 118/64 98 02/01/19 07:36 02/01/19 07:36 02/01/19 07:36 02/01/19 07:36 02/01/19 07:36 - Medications Medications: Current Medications Acetaminophen (Tylenol 325mg Tab) 650 mg PO Q6 PRN PRN Reason: Pain, Mild (1-3) Acetaminophen (Tylenol 325mg Tab) 650 mg PO Q6 PRN PRN Reason: Fever >100.4 F Morphine Sulfate (Morphine) 4 mg IVP Q4 PRN PRN Reason: Pain, severe (8-10) Last Admin: 02/01/19 00:50 Dose: 4 mg Morphine Sulfate (Morphine) 2 mg IVP Q4 PRN PRN Reason: MODERATE 5-7 Last Admin: 02/01/19 07:43 Dose: 2 mg - Labs Labs: 01/31/19 21:00 01/31/19 21:00 - Extremities Exam Additional comments: RUE: mild swelling to fingers, sensation intact to radial/med/ulnar nerve distrib. No extension of wrist/thumb/MCP joints, able to straighten fingers. + finger flexion, +cap refill, fingers warm Assessment and Plan (1) Closed fracture of shaft of right humerus Assessment & Plan: POD#2 s/p right distal humeral shaft ORIF, radial nerve repair -pain mgmt consult Dr. Sawyer -plan d/c home today -keep splint dry/intact -orthopedically stable for d/c home -f/u Dr. Vazquez next week, call for appt Status: Acute (2) Pain, postoperative, acute Status: Acute
--- NOTE | 2019-02-01 08:58 | CP.PCM.CON ---
History of Present Illness - History of Present Illness History of Present Illness: Patient s/p right humeral fracture repair and radial nerve repair is referred for pain management. Patient was discharged but then re-admitted due to intractable pain refractory to Percocet at home. According to the patient, he has an appt with surgeon next Monday. The pain starts right below the right axilla and extends to the right hand. The pain is both surgical and neuropathic. He is able to move and feel his fingers. He's opioid naive and doesn't have chronic pain history. Past Patient History - Past Medical History & Family History Past Medical History?: No - Past Social History Alcohol: None Drugs: Denies - CARDIAC Hx Cardiac Disorders: No - PULMONARY Hx Respiratory Disorders: No - NEUROLOGICAL Hx Neurological Disorder: No - HEENT Hx HEENT Problems: No - ENDOCRINE/METABOLIC Hx Endocrine Disorders: No - HEMATOLOGICAL/ONCOLOGICAL Hx Blood Disorders: No - INTEGUMENTARY Hx Dermatological Problems: No - MUSCULOSKELETAL/RHEUMATOLOGICAL Hx Musculoskeletal Disorders: No Hx Falls: No - GASTROINTESTINAL Hx Gastrointestinal Disorders: No - GENITOURINARY/GYNECOLOGICAL Hx Genitourinary Disorders: No - PSYCHIATRIC Hx Emotional Abuse: No Hx Physical Abuse: No Hx Substance Use: No - SURGICAL HISTORY Hx Surgeries: No - ANESTHESIA Hx Anesthesia: Yes Hx Anesthesia Reactions: No Meds Allergies/Adverse Reactions: Allergies Allergy/AdvReac Type Severity Reaction Status Date / Time No Known Allergies Allergy Verified 01/29/19 14:35 - Medications Medications: Current Medications Acetaminophen (Tylenol 325mg Tab) 650 mg PO Q6 PRN PRN Reason: Pain, Mild (1-3) Acetaminophen (Tylenol 325mg Tab) 650 mg PO Q6 PRN PRN Reason: Fever >100.4 F Morphine Sulfate (Morphine) 4 mg IVP Q4 PRN PRN Reason: Pain, severe (8-10) Last Admin: 02/01/19 00:50 Dose: 4 mg Morphine Sulfate (Morphine) 2 mg IVP Q4 PRN PRN Reason: MODERATE 5-7 Last Admin: 02/01/19 07:43 Dose: 2 mg Physical Exam - Extremities Exam Additional comments: Right arm dressing intact. Fingers sensation intact, nontender to palpation. Results - Vital Signs Recent Vital Signs: Last Vital Signs Temp 98.7 F 02/01/19 07:36 Pulse 79 02/01/19 07:36 Resp 20 02/01/19 07:36 BP 118/64 02/01/19 07:36 Pulse Ox 98 02/01/19 07:36 - Labs Result Diagrams: 01/31/19 21:00 01/31/19 21:00 Labs: Laboratory Results - last 24 hr 01/31/19 01/31/19 01/31/19 21:00 21:00 21:00 WBC 10.1 RBC 4.27 L Hgb 12.1 Hct 35.0 MCV 81.8 MCH 28.3 MCHC 34.6 RDW 13.6 Plt Count 212 MPV 8.8 Neut % (Auto) 76.0 H Lymph % (Auto) 14.8 L [place] % (Auto) 8.8 Eos % (Auto) 0.1 Baso % (Auto) 0.3 Neut # (Auto) 7.6 H Lymph # (Auto) 1.5 [place] # (Auto) 0.9 H Eos # (Auto) 0.0 Baso # (Auto) 0.0 Sodium 139 Potassium 3.8 Chloride 101 Carbon Dioxide 27 Anion Gap 15 BUN 12 Creatinine 0.8 Est GFR ( Amer) > 60 Est GFR (Non-Af Amer) > 60 Random Glucose 113 H Lactic Acid 1.3 Calcium 8.9 Total Bilirubin 0.7 AST 59 ALT 43 Alkaline Phosphatase 63 Total Protein 7.0 Albumin 4.4 Globulin 2.6 Albumin/Globulin Ratio 1.7 Assessment & Plan - Assessment and Plan (Free Text) Assessment: 28 yo man s/p extensive repair of right humeral fracture and radial nerve. Due to complexity of surgery, patient probably needs more than Percocet 5/325mg for pain control in the immediate future. Neuropathic medication and NSAIDs are necessary as well. - d/c Percocet, Morphine IV - start MSIR 15mg - start Naproxen 500mg BID, Neurontin 300mg q8h, and Cymbalta 30mg qhs - patient may be discharged with above regimen, about #30 tablets of MSIR until he can see Dr. Vazquez on Monday
[2019-02-01] MEDS ORDERED: Enoxaparin 40 mg Syringe SC SCH (09:00)
[2019-02-01] MEDS ORDERED: Morphine 15 mg Immediate Release Tab PO PRN (09:03)
[2019-02-01] MEDS ORDERED: Naproxen 500 MG TAB PO SCH (09:15)
--- NOTE | 2019-02-01 11:23 | CP.PCM.DIS ---
Provider - Provider Date of Admission: 01/31/19 22:34 Attending physician: Deandre Rubin MD Consults: 01/31/19 22:35 Orthopedic Consult Routine Comment: aware Consulting Provider: Wesley Tubbs III Consulting Physician: Wesley Tubbs III Reason for Consult: post op pain 02/01/19 08:27 Physician Consult Routine Comment: Consulting Provider: Suresh Sawyer Consulting Physician: Suresh Sawyer Reason for Consult: post op pain Time Spent in preparation of Discharge (in minutes): 30 Diagnosis - Discharge Diagnosis (1) Closed fracture of shaft of right humerus Status: Acute Comment: -RUE pain likely post-op pain. -ORIF displaced/comminuted distal 1/3 humerus fracture, POD 3. -ortho consulted. -Anesthesia consult for pain management. -PT when cleared by ortho (2) Pain, postoperative, acute Status: Acute Comment: - Anesthesia consult apprecaited: Naproxen 500mg BID, Neurontin 300mg q8h, and Cymbalta 30mg qhs; #30 tablets of MSIR until he can see Dr. Tubbs on [facility] - Lab Results Lab Results: Most Recent Lab Values WBC 10.1 K/uL (4.8-10.8) 01/31/19 21:00 RBC 4.27 Mil/uL (4.40-5.90) L 01/31/19 21:00 Hgb 12.1 g/dL (12.0-18.0) 01/31/19 21:00 Hct 35.0 % (35.0-51.0) 01/31/19 21:00 MCV 81.8 fl (80.0-94.0) 01/31/19 21:00 MCH 28.3 pg (27.0-31.0) 01/31/19 21:00 MCHC 34.6 g/dL (33.0-37.0) 01/31/19 21:00 RDW 13.6 % (11.5-14.5) 01/31/19 21:00 Plt Count 212 K/uL (130-400) 01/31/19 21:00 MPV 8.8 fl (7.2-11.7) 01/31/19 21:00 Neut % (Auto) 76.0 % (50.0-75.0) H 01/31/19 21:00 Lymph % (Auto) 14.8 % (20.0-40.0) L 01/31/19 21:00 [place] % (Auto) 8.8 % (0.0-10.0) 01/31/19 21:00 Eos % (Auto) 0.1 % (0.0-4.0) 01/31/19 21:00 Baso % (Auto) 0.3 % (0.0-2.0) 01/31/19 21:00 Neut # (Auto) 7.6 K/uL (1.8-7.0) H 01/31/19 21:00 Lymph # (Auto) 1.5 K/uL (1.0-4.3) 01/31/19 21:00 [place]er # (Auto) 0.9 K/uL (0.0-0.8) H 01/31/19 21:00 Eos # (Auto) 0.0 K/uL (0.0-0.7) 01/31/19 21:00 Baso # (Auto) 0.0 K/uL (0.0-0.2) 01/31/19 21:00 Sodium 139 mmol/l (132-148) 01/31/19 21:00 Potassium 3.8 MMOL/L (3.6-5.0) 01/31/19 21:00 Chloride 101 mmol/L (98-107) 01/31/19 21:00 Carbon Dioxide 27 mmol/L (22-30) 01/31/19 21:00 Anion Gap 15 (10-20) 01/31/19 21:00 BUN 12 mg/dl (9-20) 01/31/19 21:00 Creatinine 0.8 mg/dl (0.8-1.5) 01/31/19 21:00 Est GFR ( Amer) > 60 01/31/19 21:00 Est GFR (Non-Af Amer) > 60 01/31/19 21:00 Random Glucose 113 mg/dL (75-110) H 01/31/19 21:00 Lactic Acid 1.3 mmol/L (0.7-2.1) 01/31/19 21:00 Calcium 8.9 mg/dL (8.4-10.2) 05/30/19 21:00 Total Bilirubin 0.7 mg/dl (0.2-1.3) 01/31/19 21:00 AST 59 U/L (17-59) 01/31/19 21:00 ALT 43 U/L (21-72) 01/31/19 21:00 Alkaline Phosphatase 63 U/L (38-126) 01/31/19 21:00 Total Protein 7.0 G/DL (6.3-8.2) 01/31/19 21:00 Albumin 4.4 g/dL (3.5-5.0) 01/31/19 21:00 Globulin 2.6 gm/dL (2.2-3.9) 01/31/19 21:00 Albumin/Globulin Ratio 1.7 (1.0-2.1) 01/31/19 21:00 - Hospital Course Hospital Course: 28 yo male with no medical history presented to ED for RUE pain secondary to ORIF displaced/comminuted distal 1/3 humerus fracture, POD 3. Anesthesia consult placed for Dr. Sawyer and patient's pain medication was changed to Naproxen 500mg BID, Neurontin 300 q8h, Cymbalta 30mg Q HS. MSIR 15mg for 5 days only until patient sees Dr. Tubbs outpatient. Patient to discontinue Percocet at home and was educated to not take Percocet with the MSIR. Discharge Exam - Head Exam Head Exam: ATRAUMATIC, NORMAL INSPECTION, NORMOCEPHALIC - Eye Exam Eye Exam: Normal appearance - ENT Exam ENT Exam: Mucous Membranes Moist - Respiratory Exam Respiratory Exam: Clear to PA & Lateral, NORMAL BREATHING PATTERN, UNREMARKABLE. absent: Accessory Muscle Use, Chest Wall Tenderness, Decreased Breath Sounds, Prolonged Expiratory Phase, Rales, Rhonchi, Wheezes, Respiratory Distress, Stridor - Cardiovascular Exam Cardiovascular Exam: +S1, +S2 - GI/Abdominal Exam GI & Abdominal Exam: Normal Bowel Sounds, Soft, Unremarkable. absent: Distended, Firm, Guarding, Pulsatile Mass, Rebound, Rigid, Tenderness - Extremities Exam Additional comments: Right arm cast in place. Sensation intact. Able to move fingers. - Neurological Exam Neurological exam: Alert, Oriented x3 - Skin Skin Exam: Dry, Intact, Normal Color, Warm Discharge Plan - Discharge Medications Prescriptions: DULoxetine [Cymbalta] 30 mg PO DAILY #30 ecc Gabapentin [Neurontin] 300 mg PO TID #90 cap Naproxen 500 mg PO Q12 #60 tab - Follow Up Plan Condition: GOOD Disposition: HOME/ ROUTINE Patient education suggested?: Yes Instructions: Postoperative Pain (DC), Upper Arm Fracture Additional Instructions: ramón con dr tubbs el [facility]. NO MYRA PERCOCET!! Referrals: [facility] [place] [Outside] Wesley Tubbs III, MD [Staff Provider] - Silviano Sawyer-Hemanth Fox MD [Staff Provider] -
[2019-02-01 22:22] VITALS: O2SAT 97
== END 2019-02-01 14:22 | disposition home or self-care (01) ==
LOC: H.ER 19:58 → H.ERHOLD 22:34 → H.MEDSURG1 02-01 00:20
PROVIDERS: ADMIT Internal Medicine; ATTEND Internal Medicine
DX: G89.18 Other acute postprocedural pain (principal); S42.301D Unspecified fracture of shaft of humerus, right arm, subsequent encounter for fracture with routine healing; X58.XXXD Exposure to other specified factors, subsequent encounter; Z79.899 Other long term (current) drug therapy; M25.511 Pain in right shoulder
CPT/HCPCS: 80053; 83605; 85025; 87040; 96374; 96375; 96376; 99285; G0378; J1885; J2270; J7030